=== PATIENT | male | born 1940 | race Caucasian/White ===

== ENCOUNTER 2017-11-08 08:56 | Outpatient (CLI) | payer MEDICARE, BC ==
[~2017-11-08] VITALS: Ht 182.9 cm; Wt 83.9 kg
[~2017-11-08 08:56] MED LIST: ALB0.5UD IH; ASPI81TA49 PO; CHOL2000 PO; DOXYLAMINE SUCCINATE PO; FLUT100D2 INH; HYDR-3972 PO; OMEG500C PO; RAMI10CA PO; VITA1CAP PO
[2017-11-08] MEDS ORDERED: albuterol 2.5 MG/3 ML nebule NEB ONE (09:32)
[2017-11-08 09:41] LABS: TOTAL HEMOGLOBIN 17.7 G/dl (14.0-18.0)
== END 2017-11-08 23:59 | disposition home or self-care (01) ==
LOC: RT 08:56
PROVIDERS: ATTEND Internal Medicine
DX: C34.90 Malignant neoplasm of unspecified part of unspecified bronchus or lung (principal); J44.9 Chronic obstructive pulmonary disease, unspecified; I10 Essential (primary) hypertension; J45.909 Unspecified asthma, uncomplicated
CPT/HCPCS: 85018; 94060; 94640; 94727; 94729

== ENCOUNTER 2017-11-21 09:50 | Outpatient (CLI) | payer MEDICARE, BC ==
[2017-11-21 10:35] LABS: INR 0.9 INR; PARTIAL THROMBOPLASTIN TIME 27 SECONDS (22-32); PROTHROMBIN TIME 9.7 SECONDS (9.0-12.0)
== END 2017-11-21 23:59 | disposition home or self-care (01) ==
LOC: LAB 09:50
PROVIDERS: ATTEND Internal Medicine
DX: I10 Essential (primary) hypertension (principal); R79.1 Abnormal coagulation profile; J44.9 Chronic obstructive pulmonary disease, unspecified; Z67.90 Unspecified blood type, Rh positive
CPT/HCPCS: 36415; 85610; 85730; 86885; 86900; 86901